=== PATIENT | male | born 1980 | race Caucasian/White ===

== ENCOUNTER → 2017-10-24 | Day surgery (SDC) | payer SELFPAY ==
[~2017-10-24] VITALS: Ht 160 cm; Wt 80.5 kg
[~2017-10-24] MED LIST: AMPICILLIN/SULBAC 3 GM/NS 100 ML IV PRN; CHLORHEXIDINE GLUCONATE 2 % 1 PACK (2 CLOTHS) TOPICAL PRN; CLINDAMYCIN 600 MG/NS PREMIX 50 ML IV ONE; DEXAMETHASONE SOD PHOS 4 MG/ML VIAL ONE; INSULIN HUMAN REGULAR 1,000 UNITS/10 ML VIAL SQ PRN; LACTATED RINGER'S 1000 ML IV PRN; LIDOCAINE 1%/EPINEPHrine 1:100,000 SOLN 20 ML VIAL ONE; METOPROLOL TARTRATE 25 MG TAB PO PRN; MIDAZOLAM HCL 2 MG/2 ML VIAL ONE; OXYMETAZOLINE HCL 0.05% 15 ML NASAL SPRAY ONE; POVIDONE IODINE 5% (ANTISEPSIS KIT) 4 APPLICATIONS EACH NARE PRN; SODIUM CHLORID 0.9% 500 ML IV PRN; fentaNYL CITRATE 250 MCG/5 ML AMP ONE
--- NOTE | 2017-10-24 09:00 | MP ---
cc: Manny Kamara MD DATE OF OPERATION: 10/24/2017 DATE OF OPERATION: 10/24/2017 SURGEON: Manny Kamara MD PREOPERATIVE DIAGNOSES: 1. Nasal airway obstruction. 2. Nasal septal deviation. 3. Hypertrophied inferior turbinates. POSTOPERATIVE DIAGNOSES: 1. Nasal airway obstruction. 2. Nasal septal deviation. 3. Hypertrophied inferior turbinates. OPERATION PERFORMED: 1. Open repair of nasal septal fracture. 2. Bilateral submucosal resection of inferior turbinates. INDICATIONS FOR PROCEDURE: Documented in the history and physical. DETAILS OF PROCEDURE: The patient was taken to OR #2, placed in the supine position. Following induction of general anesthesia and intubation, the nose was packed bilaterally with cotton pledgets saturated in 0.05% oxymetazoline that was injected into the septal mucosa and inferior turbinates with a total of 6 mL of 1 percent Xylocaine with epinephrine 1:100,000. He was then prepped and draped for surgery, the packing was removed and a hemitransfixion incision was made in the left nasal vestibule. Through this incision, the mucosa of septum was elevated bilaterally as far as the junction of the bony and cartilaginous septum. This revealed the quadrangular cartilage, which showed severe deviation toward the right with numerous areas of long healed lines of fracture and fragments extending into the right and left nasal airways. A cumulative area of 2 x 2.5 cm was removed, preserving 1.5 cm dorsal and caudal cartilaginous struts. When this was completed, the mucosa was elevated from the bony septum and the maxillary crest and these were removed using Esau-Gutierrez forceps and the Vasquez septal forceps on the bony septum and then the maxillary crest was removed using closed Esau-Gutierrez forceps. The incision was then closed with a running suture of 4-0 chromic and the mucosal layers of septum were approximated to each other with a quilting stitch of 4-0 plain gut. The inferior turbinates were then fractured out medially and stab incisions were made along their inferior surfaces. Through these incisions, the submucosal soft tissue was reduced using a curette and preserving the conchal bone. The incisions were then cauterized using suction Bovie at 35 rodriguez and the remnants of the inferior turbinates were then relateralized to the lateral nasal wall. The nose was packed bilaterally with 5.5 cm Rapid Rhino packs, each and inflated with 5 mL of air and the procedure was terminated. The patient was reversed from anesthesia and taken to recovery in good condition. There were no complications. Blood loss was 60 mL. MD MIKO Yang/TRICIA , 08:47 AM , 08:59 AM
[2017-10-24 09:30] VITALS: BP 131/74; PULSE 66; RESP 16; TEMP 98.1; O2SAT 95
== END | disposition home or self-care (01) ==
LOC: PHSDC 06:33
PROVIDERS: ATTEND Otolaryngology
DX: J34.2 Deviated nasal septum (principal); J34.3 Hypertrophy of nasal turbinates; G47.33 Obstructive sleep apnea (adult) (pediatric)
CPT/HCPCS: 00160; 21336; 30140; J1100; J2250; J3010; J7120